=== PATIENT | male | born 1990 ===

== ENCOUNTER 2017-09-10 12:02 | Emergency (ER) | payer OTHER ==
[2017-09-10 12:23] VITALS: BP 141/72
[2017-09-10] MEDS ORDERED: HYDROcodone/ACETAMIN 5-325 MG* 1 TAB PO ONE (12:31)
--- NOTE | 2017-09-10 12:32 | UC ---
Lower Extremity/Ankle HPI - HPI Summary HPI Summary: Patient states he fell down the stairs last night. Complains of lateral right ankle pain and distal fibular pain. Bruising and swelling is evident. Patient states he is not able to weight-bear on right foot - History of Current Complaint Chief Complaint: UCLowerExtremity Stated Complaint: ANKLE INJURY Time Seen by Provider: 09/10/17 12:26 Hx Obtained From: Patient Onset/Duration: Sudden Onset, Lasting Hours - 12 Severity Initially: Moderate Severity Currently: Moderate Pain Intensity: 7 Pain Scale Used: 0-10 Numeric Aggravating Factor(s): Standing, Ambulation Alleviating Factor(s): Rest, Elevation, Other - Patient reports cold band wrapped does promote comfort Able to Bear Weight: No - Allergies/Home Medications Allergies/Adverse Reactions: Allergies Allergy/AdvReac Type Severity Reaction Status Date / Time cefixime [From Suprax] Allergy Unknown Verified 09/10/17 12:23 Reaction Details PMH/Surg Hx/FS Hx/Imm Hx Previously Healthy: Yes - Surgical History Surgical History: None - Social History Occupation: Unemployed Lives: With Family Alcohol Use: Weekly Substance Use Type: None Smoking Status (MU): Never Smoked Tobacco Review of Systems Constitutional: Negative Skin: Bruising - Right lateral ankle Eyes: Negative ENT: Negative Respiratory: Negative Cardiovascular: Negative Gastrointestinal: Negative Genitourinary: Negative Motor: Decreased ROM - Right ankle Neurovascular: Negative Musculoskeletal: Arthralgia - Right ankle, Edema - Right lateral ankle Neurological: Negative Psychological: Negative Is Patient Immunocompromised?: No All Other Systems Reviewed And Are Negative: Yes Physical Exam Triage Information Reviewed: Yes Appearance: Well-Appearing, Well-Nourished, Pain Distress - mild-moderate Vital Signs: Initial Vital Signs Temp 99.0 F 09/10/17 12:17 Pulse 70 09/10/17 12:17 Resp 18 09/10/17 12:17 BP 141/72 09/10/17 12:17 Pulse Ox 97 09/10/17 12:17 Vital Signs Reviewed: Yes Eye Exam: Normal Eyes: Positive: Conjunctiva Clear ENT Exam: Normal ENT: Positive: Normal ENT inspection, Hearing grossly normal. Negative: Trismus , Muffled voice, Hoarse voice Dental Exam: Normal Neck exam: Normal Neck: Positive: Supple, Nontender Respiratory Exam: Normal Respiratory: Positive: Chest non-tender, No respiratory distress, No accessory muscle use Cardiovascular Exam: Normal Cardiovascular: Positive: RRR, Pulses Normal, Brisk Capillary Refill Musculoskeletal Exam: Other - Limitations in the right ankle Musculoskeletal: Positive: Strength Limited @, ROM Limited @, Edema @ Neurological Exam: Normal Neurological: Positive: Alert, Muscle Tone Normal Psychological Exam: Normal Skin Exam: Normal Diagnostics - Radiology No standard instances Xray Interpretation: No Acute Changes Radiology Interpretation Completed By: ED Physician, Radiologist Re-Evaluation - Re-Evaluation First Eval Change: Improved Lower Extremity Course/Dx - Course Course Of Treatment: Trey wrap gel splint and crutches, rest ice and elevation, ibuprofen for mild to moderate pain we'll dispense Vicodin for more severe pain , will follow with orthopedic doctor if not resolved in the next 4-5 days. Will follow elevated blood pressure with primary care physician. - Differential Dx/Diagnosis Provider Diagnoses: Right ankle sprain, elevated blood pressure without diagnosis of hypertension Discharge - Sign-Out/Discharge Documenting (check all that apply): Discharge - Discharge Plan Condition: Stable Disposition: HOME Prescriptions: Hydrocodone/Acetaminophen [Hydrocodone-Acetamin 5-325 mg] 1 each PO QID PRN #8 tablet MDD 4 PRN Reason: Pain - Moderate To Severe Ibuprofen TAB* [Motrin TAB* 600 MG] 600 mg PO Q6H PRN #30 tab PRN Reason: Pain Scale 1-5 Patient Education Materials: R.I.C.E. Treatment (ED), Ankle Sprain (ED), Hypertension (ED), Crutch Instructions (ED) Referrals: Eren Muhammad MD [Primary Care Provider] - 2 Weeks Arsalan Camacho MD [Medical Doctor] - 5 Days () - Billing Disposition and Condition Condition: STABLE Disposition: HOME
--- NOTE | 2017-09-10 13:18 | RAD ---
INDICATION: Right ankle injury. TECHNIQUE: 3 views of the right ankle were obtained. FINDINGS: Soft tissue swelling is noted along the anterolateral aspect of the ankle. No fracture is seen. Joint spaces appear maintained. IMPRESSION: SOFT TISSUE SWELLING, NO FRACTURE IS SEEN.
== END 2017-09-10 13:47 | disposition home or self-care (01) ==
LOC: UCEAST 12:02
DX: S93.401A Sprain of unspecified ligament of right ankle, initial encounter (principal); W10.9XXA Fall (on) (from) unspecified stairs and steps, initial encounter; Y93.9 Activity, unspecified; Y92.9 Unspecified place or not applicable; R03.0 Elevated blood-pressure reading, without diagnosis of hypertension; Z88.1 Allergy status to other antibiotic agents
CPT/HCPCS: 99203; G0463